=== PATIENT | male | born 1990 | race African-American/Black ===

== ENCOUNTER 2018-07-04 16:40 | Emergency (ER) | payer OTHER ==
[~2018-07-04] VITALS: Ht 172.7 cm; Wt 77.1 kg
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
[2018-07-04] MEDS ORDERED: ACETAMINOPHEN ES 500 MG TABLET ONE (17:12)
[2018-07-04] MEDS ORDERED: IBUPROFEN 600 MG TABLET PO ONE ×2 (17:12→17:30)
[2018-07-04] MEDS ORDERED: ACETAMINOPHEN ES 500 MG TABLET PO ONE (17:30)
[2018-07-04 18:38] VITALS: BP 120/65
--- NOTE | 2018-07-04 18:38 | NUR ---
Patient discharged to home in stable condition. Written and verbal after care instructions given. Patient verbalizes understanding of instruction. AMBULATORY STEADY GAIT.
== END 2018-07-04 18:41 | disposition home or self-care (01) ==
LOC: ER 16:42
DX: S00.512A Abrasion of oral cavity, initial encounter (principal); M25.511 Pain in right shoulder; M54.5 Low back pain; Y08.89XA Assault by other specified means, initial encounter; Y93.89 Activity, other specified; Y92.89 Other specified places as the place of occurrence of the external cause; Y99.8 Other external cause status
CPT/HCPCS: 71045-TC; 72110-TC; 73030-TC

== ENCOUNTER 2018-07-06 08:44 | Emergency (ER) | payer OTHER ==
[~2018-07-06] VITALS: Ht 172.7 cm; Wt 75.7 kg
[2018-07-06 08:49] VITALS: BP 124/83
[2018-07-06] MEDS ORDERED: IBUPROFEN 600 MG TABLET PO ONE ×2 (09:08→09:30)
== END 2018-07-06 10:26 | disposition home or self-care (01) ==
LOC: ER 08:48
DX: M25.512 Pain in left shoulder (principal); Z60.2 Problems related to living alone; Y04.0XXA Assault by unarmed brawl or fight, initial encounter; Y93.89 Activity, other specified; Y92.89 Other specified places as the place of occurrence of the external cause; Y99.8 Other external cause status
CPT/HCPCS: 73030-TC

== ENCOUNTER 2020-07-19 18:58 | Emergency (ER) | payer OTHER ==
[~2020-07-19] VITALS: Ht 177.8 cm; Wt 77.1 kg
[2020-07-19] MEDS ORDERED: ONDANSETRON 4 MG TAB.RAPDIS ONE (20:08)
[2020-07-19] MEDS ORDERED: HYDROCODONE/APAP 5/325MG TABLET ONE (20:08)
--- NOTE | 2020-07-19 20:28 | NUR ---
X RAY AT BED SIDE
[2020-07-19] MEDS ORDERED: ONDANSETRON 4 MG TAB.RAPDIS SL ONE (20:30)
[2020-07-19] MEDS ORDERED: HYDROCODONE/APAP 5/325MG TABLET PO ONE (20:30)
--- NOTE | 2020-07-19 21:22 | NUR ---
Patient discharged to home in stable condition. Written and verbal after care instructions given. Patient verbalizes understanding of instruction.
[2020-07-19 21:23] VITALS: BP 124/79
== END 2020-07-19 21:23 | disposition home or self-care (01) ==
LOC: ER 18:58
DX: S90.32XA Contusion of left foot, initial encounter (principal); Z98.890 Other specified postprocedural states; Z60.2 Problems related to living alone; W22.8XXA Striking against or struck by other objects, initial encounter; Y93.9 Activity, unspecified; Y92.89 Other specified places as the place of occurrence of the external cause; Y99.8 Other external cause status
CPT/HCPCS: 73630; 99283; Q0162